=== PATIENT | female | born 1940 | race Caucasian/White ===

== ENCOUNTER → 2018-04-28 | Outpatient (CLI) | payer OTHER ==
[~2018-04-28] MED LIST: ASPI-555 PO; ATOR20TA65 PO; BIMA12.5OS OU; DYAZIDE PO; ERGO2000 PO; FISH1CAP49 PO; LEVO88TA4 PO; LISI-613 PO; LORA-705 PO; METO50TA9 PO; MULT1CAP32 PO
== END | disposition home or self-care (01) ==
LOC: RAH 08:22
PROVIDERS: ATTEND Internal Medicine
DX: Z12.31 Encounter for screening mammogram for malignant neoplasm of breast (principal)
CPT/HCPCS: 77067

== ENCOUNTER → 2019-04-30 | Outpatient (CLI) | payer OTHER | END | disposition home or self-care (01) | LOC: RAH 08:20 | PROVIDERS: ATTEND Internal Medicine | DX: Z12.31 Encounter for screening mammogram for malignant neoplasm of breast (principal) | CPT/HCPCS: 77067 ==

== ENCOUNTER → 2020-06-02 | Outpatient (CLI) | payer MEDICARE ==
[~2020-06-02] MED LIST changes: -ASPI-555 PO; +ASPI-556 PO; -DYAZIDE PO; +ESOM40CA54 PO; -FISH1CAP49 PO; +LEVO100T12 PO; -LEVO88TA4 PO; -LISI-613 PO; +NIFE-40 PO
[2020-06-02 10:38] LABS: INR 0.99 (0.85-1.15); PARTIAL THROMBOPLASTIN TIME 24.3 SEC (26.3-35.5); PROTHROMBIN TIME 10.7 SEC (9.6-11.6)
--- NOTE | 2020-06-02 10:45 | NUR ---
US GUIDED FNA OF RIGHT THYROID NODULE PROCEDURE PERFORMED BY DR. TABARES. PUNCTURE SITE RIGHT LATERAL SIDE OF THE NECK. PATIENT TOLERATED PROCEDURE WELL. SPECIMEN X [address] NEWSOME, DOCTOR OF PATHOLOGY. END OF PROCEDURE AT 1055. BIOPSY NEEDLE REMOVED AND DRESSING APPLIED. NO BLEEDING NOTED. DISCHARGE INSTRUCTIONS GIVEN TO PATIENT AND VERBALIZED UNDERSTANDING. DISCHARGED AMBULATORY STABLE, AAO X 3 WITH NO C/O PAIN.
== END | disposition home or self-care (01) ==
LOC: RAH 09:55
PROVIDERS: ATTEND Otolaryngology
DX: E04.1 Nontoxic single thyroid nodule (principal); R25.1 Tremor, unspecified; M62.81 Muscle weakness (generalized); E78.5 Hyperlipidemia, unspecified; E03.9 Hypothyroidism, unspecified; I10 Essential (primary) hypertension; Z98.51 Tubal ligation status; Z98.41 Cataract extraction status, right eye; Z98.42 Cataract extraction status, left eye; Z98.890 Other specified postprocedural states; Z72.89 Other problems related to lifestyle; Z79.82 Long term (current) use of aspirin; Z79.899 Other long term (current) drug therapy; Z79.890 Hormone replacement therapy; Z79.01 Long term (current) use of anticoagulants
CPT/HCPCS: 10005; 36415; 60100; 76942; 85610; 85730; 88172; 88173; 88177

== ENCOUNTER → 2020-06-11 | Outpatient (CLI) | payer MEDICARE | END | disposition home or self-care (01) | LOC: RAH 07:59 | PROVIDERS: ATTEND Internal Medicine | DX: Z12.31 Encounter for screening mammogram for malignant neoplasm of breast (principal) | CPT/HCPCS: 77067 ==

== ENCOUNTER → 2022-06-18 | Outpatient (CLI) | payer MEDICARE ==
[~2022-06-18] MED LIST changes: +LORA-699 PO; -LORA-705 PO
== END | disposition home or self-care (01) ==
LOC: RAH 07:36
PROVIDERS: ATTEND Internal Medicine
DX: Z12.31 Encounter for screening mammogram for malignant neoplasm of breast (principal)
CPT/HCPCS: 77067

== ENCOUNTER → 2023-06-21 | Outpatient (CLI) | payer MEDICARE | END | disposition home or self-care (01) | LOC: RAH 08:56 | PROVIDERS: ATTEND Family Medicine | DX: Z12.31 Encounter for screening mammogram for malignant neoplasm of breast (principal) | CPT/HCPCS: 77067 ==

== ENCOUNTER → 2024-05-30 | Outpatient (CLI) | payer MEDICARE ==
[~2024-05-30] MED LIST changes: -ESOM40CA54 PO; +ESOM40CA66 PO
== END | disposition home or self-care (01) ==
LOC: RAH 12:34
PROVIDERS: ATTEND Clinical Nurse Specialist Family Health
DX: S90.31XA Contusion of right foot, initial encounter (principal); M79.671 Pain in right foot; M25.571 Pain in right ankle and joints of right foot; M25.871 Other specified joint disorders, right ankle and foot; X58.XXXA Exposure to other specified factors, initial encounter; Y93.89 Activity, other specified; Y92.89 Other specified places as the place of occurrence of the external cause; Y99.8 Other external cause status
CPT/HCPCS: 73610; 73630

== ENCOUNTER → 2024-06-22 | Outpatient (CLI) | payer MEDICARE ==
--- NOTE | 2024-06-22 10:50 | HMCIMG ---
MAMMO SCREENING BILATERAL HISTORY: Screening mammogram. COMPARISON: 06/21/2023 TECHNIQUE: Bilateral screening mammogram with CAD was performed with craniocaudal and mediolateral oblique projections. FINDINGS: There are scattered areas of fibroglandular density. There is no evidence of a dominant mass, or suspicious microcalcification. There is no evidence of nipple retraction or skin thickening. IMPRESSION: 1. Stable mammogram. Patient was entered into a reminder system with a target due date for their next mammogram. BI-RADS: CATEGORY 2: BENIGN FINDINGS Recommend monthly self breast exam as well as annual clinical examination. A negative x-ray should not delay biopsy if a dominant or clinically suspicious mass is present, since 8-10% of cancers are not identified by mammography. Dense breasts particularly, may obscure an underlying neoplasm. Some of these may be detected clinically and therefore, clinical examination is an essential part of breast evaluation.
== END | disposition home or self-care (01) ==
LOC: RAH 09:41
PROVIDERS: ATTEND Internal Medicine
DX: Z12.31 Encounter for screening mammogram for malignant neoplasm of breast (principal); R92.323 Mammographic fibroglandular density, bilateral breasts
CPT/HCPCS: 77067

== ENCOUNTER 2024-08-04 14:16 | Emergency (ER) | payer MEDICARE ==
[~2024-08-04] VITALS: Ht 157.5 cm; Wt 59.0 kg
[2024-08-04] MEDS ORDERED: HYDR-4060 PO (14:59)
[2024-08-04] MEDS ORDERED: MELO-108 PO (14:59)
--- NOTE | 2024-08-04 15:02 | ERN ---
General Chief Complaint: Wrist Pain/Injury Stated Complaint: "MIGHT HAVE BROKEN WRIST" Time Seen by MD: 14:16 History of Present Illness Allergies: Coded Allergies: No Known Drug Allergies (Unverified Allergy, Unknown, 11/23/16) Home Meds Active Scripts Nifedipine (Nifedipine ER) 30 Mg Tab.er.24, 30 MG PO DAILY for 30 Days, #30 TAB Prov:LUL RIVERA Jr., MD 05/09/20 Esomeprazole Magnesium (Esomeprazole Magnesium) 40 Mg Capsule.dr, 40 MG PO DAILY for 30 Days, #30 CAP Prov:LUL RIVERA Jr., MD 05/09/20 Metoprolol Succinate (Toprol Xl) 50 Mg Tab.er.24h, 50 MG PO DAILY for 30 Days, #30 TAB Prov:LUL RIVERA Jr., MD 05/09/20 Reported Medications Levothyroxine Sodium (Levothyroxine Sodium) 100 Mcg Tablet, 100 MCG PO ACBKFST, TAB 05/05/20 Aspirin (Aspir 81) 81 Mg Tablet.dr, 81 MG PO DAILY, TAB 11/19/16 Ergocalciferol (Vitamin D2) (Vitamin D2) 2,000 Unit Tablet, 1000 UNIT PO DAILY, TAB 11/19/16 Multivitamin (Multivitamins) 1 Each Capsule, 1 EACH PO DAILY, CAP 11/19/16 Loratadine (Loratadine) 10 Mg Tab.rapdis, 10 MG PO DAILY, TAB 11/19/16 Bimatoprost (Lumigan 0.01% Ophth Soln) 20 Drop/Ml Opsol, 1 DROP OU HS, DROP 11/19/16 Atorvastatin Calcium (Atorvastatin Calcium) 20 Mg Tablet, 20 MG PO DAILY, TAB 11/19/16 Past Medical History Past Medical History: Hypertension Past Surgical History: Other MDM CC: L wrist pain s/p mechanical fall Historian: patient Comorbidities: hypertension, advanced age Limitations by social determinants of health: None Vital signs are stable Differential diagnosis: Wrist fracture closed versus musculoskeletal type injury Left wrist x-ray per my independent interpretation: Right distal radius fracture with [id number] displacement posteriorly, also crime scene analyst process fracture. Patient is neurovascularly intact. Closed injury. There is no major displacement, so at this time we will wrap and a splint and sent to ortho for an outpatient follow up. We will send with a prescription for [place] tabs and meloxicam. Patient agrees with the plan. Patient placed in a sugar-tong splint here in the ER. Neurovascularly intact before and after. ED Course Orders Procedure Category Date Status Time Wrist Comp 3+Vws Lt RAD 08/04/24 Taken 14:28 *Nursing CPOE 08/04/24 Transmitted Communication: 14:28 Vital Signs Date Time Temp Pulse Resp B/P (MAP) Pulse Ox O2 Delivery O2 Flow Rate FiO2 08/04/24 14:32 98.8 68 20 156/69 98 Room Air* 0 21 08/04/24 14:25 98.8 66 18 159/65 98 Room Air 0 DX & DISP Disposition: Discharge Departure Impression: Primary Impression: Left wrist fracture Condition: Stable Scripts Hydrocodone/Acetaminophen (Hydrocodon-Acetaminophen 5-325) 5 Mg-325 Mg Tablet 1 TAB PO TIDP PRN for pain for 5 Days, #15 TAB 0 Refills Prov: KISHA JACOBO DO 08/04/24 Meloxicam (Meloxicam) 15 Mg Tablet 15 MG PO DAILY PRN for PAIN for 10 Days, #10 TAB Prov: KISHA JACOBO DO 08/04/24 Additional Instructions: You have a mildly displaced left distal radius (wrist) fracture. You have been placed in a splint. Please wear this until you are evaluated by an orthopedist. I recommend you elevate the wrist as much as possible. For pain I have prescribed meloxicam, which is an anti-inflammatory pain medication. You can take this once per day for the next week or so as needed. Do not mix this medication with ibuprofen or naproxen. I have also prescribed [place] tabs to use as needed for significant pain. This is an opiate medication and may make you dizzy. Only use for significant pain. You will need to follow up with an orthopedist. I have given you a referral to Dr. Seo. Please return to the emergency department if you have any concerns. Referrals: LULY ROSE MD (PCP) KISHA JACOBO DO Aug 04, 2024 15:02
--- NOTE | 2024-08-04 15:11 | HMCIMG ---
WRIST COMP 3+VWS LT CLINICAL HISTORY: fracture COMPARISON: None TECHNIQUE: AP lateral and oblique images were obtained. FINDINGS: There is a transverse impacted angulated distal metadiaphyseal fracture of the radius. There is also a transverse nondisplaced ulnar styloid fracture. The carpal bones appear unremarkable. The overlying soft tissues edematous. IMPRESSION: Distal radial and ulnar fractures.
--- NOTE | 2024-08-04 15:21 | NUR ---
SUGAR TONG SPLINT APPLIED TO PATIENT. PMS PRESENT PRE AND POST SPLINT. SLING APPLIED TO ARM.
[2024-08-04 15:29] VITALS: BP 147/60; PULSE 72; RESP 20; TEMP 98; O2SAT 98
== END 2024-08-04 15:31 | disposition home or self-care (01) ==
LOC: EDH 14:16
DX: S52.592A Other fractures of lower end of left radius, initial encounter for closed fracture (principal); S52.692A Other fracture of lower end of left ulna, initial encounter for closed fracture; I10 Essential (primary) hypertension; Z79.82 Long term (current) use of aspirin; Z79.899 Other long term (current) drug therapy; Z98.890 Other specified postprocedural states; X58.XXXA Exposure to other specified factors, initial encounter; Y93.89 Activity, other specified; Y92.89 Other specified places as the place of occurrence of the external cause; Y99.8 Other external cause status
CPT/HCPCS: 29125; 73110; 99284

== ENCOUNTER → 2024-10-04 | Outpatient (CLI) | payer MEDICARE ==
[~2024-10-04] MED LIST changes: +HYDR-4060 PO; +MELO-108 PO
--- NOTE | 2024-10-04 13:57 | HMCIMG ---
DEXA BONE DENSITY SURVEY HISTORY: Bone density disorder COMPARISON: None FINDINGS: Bone densitometry study was performed. Bone mineral density of the lumbar spine is 1.137 gram per centimeter square which corresponds to a T score of 0.8 and a Z score of 3.6. Bone mineral density of the left hip is 0.756 grams per centimeter square which corresponds to a T score of -1.5 and a Z score of 0.7. IMPRESSION: 1. Normal bone mineral density of the lumbar spine and osteopenia of left hip.
== END | disposition home or self-care (01) ==
LOC: RAH 12:58
PROVIDERS: ATTEND Internal Medicine
DX: S52.602D Unspecified fracture of lower end of left ulna, subsequent encounter for closed fracture with routine healing (principal); M85.88 Other specified disorders of bone density and structure, other site; X58.XXXD Exposure to other specified factors, subsequent encounter
CPT/HCPCS: 77080

== ENCOUNTER → 2024-11-21 | Outpatient (CLI) | payer MEDICARE ==
--- NOTE | 2024-11-21 12:17 | HMCIMG ---
Exam Type: ABD 1VW Clinical Information: CONSTIPATION Comparison: None Findings: Abdomen demonstrates no evidence of pathologic calcification or soft tissue mass. There are no radiopacities to suggest calculous disease. The intestinal gas pattern is within normal limits without evidence of dilatation to suggest obstruction or adynamic ileus. The bony structures are unremarkable. IMPRESSION: Normal abdomen.
== END | disposition home or self-care (01) ==
LOC: RAH 10:54
PROVIDERS: ATTEND Internal Medicine
DX: K59.00 Constipation, unspecified (principal); R14.0 Abdominal distension (gaseous)
CPT/HCPCS: 74018

== ENCOUNTER → 2025-06-24 | Outpatient (CLI) | payer MEDICARE | END | disposition home or self-care (01) | LOC: RAH 09:35 | PROVIDERS: ATTEND Internal Medicine | DX: Z12.31 Encounter for screening mammogram for malignant neoplasm of breast (principal) | CPT/HCPCS: 77067 ==